=== PATIENT | male | born 1985 | race Caucasian/White ===

== ENCOUNTER 2018-12-03 11:27 | Inpatient (IN) | payer OTHER ==
[2018-12-03 11:50] VITALS: BMI 20.1
--- NOTE | 2018-12-03 12:14 | HP ---
COWS - Scale Resting Pulse: 0= [place] 80 or Below Sweatin= Chills/Flushing Restless Observation: 0= Sits Still Pupil Size: 1= Pupils >than Normal Bone or Joint Aches: 4=Acute Joint/Muscle Pain Runny Nose/ Eye Tearin= Nasal Congestion GI Upset > 30mins: 1= Stomach Cramp Tremor Observation: 1= Tremor Artesian, Not Seen Yawning Observation: 0= None Anxiety or Irritability: 4=Extreme Anxiety Goose Flesh Skin: 0=Smooth Skin COWS Score: 13 CIWA Score Nausea/Vomitin-Mild Nausea/No Vomiting Muscle Tremors: 1-None Visible, but Artesian Anxiety: 4-Mod. Anxious/Guarded Agitation: 0-Normal Activity Paroxysmal Sweats: 1-Minimal Palms Moist Orientation: 0-Oriented Tacttile Disturbances: 0-None Auditory Disturbances: 0-None Visual Disturbances: 0-None Headache: 5-Severe CIWA-Ar Total Score: 12 - Admission Criteria OASAS Guidelines: Admission for Medically Managed Detox: Requires at least one of the followin. CIWA greater than 12 2. Seizures within the past 24 hours 3. Delirium tremens within the past 24 hours 4. Hallucinations within the past 24 hours 5. Acute intervention needed for co occurring medical disorder 6. Acute intervention needed for co occurring psychiatric disorder 7. Severe withdrawal that cannot be handled at a lower level of care (continued vomiting, continued diarrhea, abnormal vital signs) requiring intravenous medication and/or fluids 8. Admission ROS [facility] Allergies/Adverse Reactions: Allergies Allergy/AdvReac Type Severity Reaction Status Date / Time Penicillins Allergy Mild Itching Verified 12/03/18 13:27 History of Present Illness: patient here requesting detox from etoh use , reports 1-2 pints/day vodka since age 27 , reports tremors and seizures if not drinking , most recently August 2018 , went to [facility] , reports he starts drinking around 9-10 a.m. , denies sobriety , prior detox 1 mo ago [facility] , 1 rehab 1 yr ago [facility] , did not complete , left AMA . This is the patient's first admission at this facility . cocaine : 50 $ /day crack cocaine fentanyl : denies use heroin : 1 bundle- 15 bags/day ivdu in [place] hands, legs , needles from the exchange , denies sharing, + re-using, + abscess in the past most recently right FA 2016 I & D at [facility] , current on the right hand , latest use last night around midnight, current symptoms as above . mtd : reports bought illicit methadone 1.5 weeks ago benzo ; denies use tobacco : 1 ppd since age 14 cannabis : age 17 etoh : since age 22 heroin : since age 27 cocaine : since 2016 SHx : [place] , unemployed , finances habit [place] Exam Limitations: Clinical Condition - Ebola screening Have you traveled outside of the country in the last 21 days: No Have you had contact with anyone from an Ebola affected area: No Have you been sick,other than usual withdrawal symptoms: No Do you have a fever: No - Review of Systems Constitutional: See HPI EENT: reports: See HPI Respiratory: reports: No Symptoms reported Cardiac: reports: No Symptoms Reported GI: reports: See HPI : reports: No Symptoms Reported Musculoskeletal: reports: Back Pain, Muscle Pain Integumentary: reports: See HPI, Erythema, Other (r hand dorsum) Neuro: reports: Headache, Seizure Endocrine: reports: No Symptoms Reported Psychiatric: reports: Orientated x3, Anxious Patient History - Patient Medical History Hx Anemia: No Hx Asthma: No Hx Chronic Obstructive Pulmonary Disease (COPD): No Hx Cancer: No Hx Cardiac Disorders: No Hx Congestive Heart Failure: No Hx Hypertension: No Hx Hypercholesterolemia: No Hx Pacemaker: No HX Cerebrovascular Accident: No Hx Seizures: No Hx Dementia: No Hx Diabetes: No Hx Gastrointestinal Disorders: No Hx Liver Disease: No Hx Genitourinary Disorders: No Hx Sexually Transmitted Disorders: No Hx Renal Disease (ESRD): No Hx Thyroid Disease: No Hx Human Immunodeficiency Virus (HIV): No Hx Hepatitis C: No Hx Depression: Yes (anxiety) Hx Suicide Attempt: No Hx Schizophrenia: No - Patient Surgical History Past Surgical History: No Hx Neurologic Surgery: No Hx Cataract Extraction: No Hx Cardiac Surgery: No Hx Lung Surgery: No Hx Breast Surgery: No Hx Breast Biopsy: No Hx Abdominal Surgery: No Hx Appendectomy: No Hx Cholecystectomy: No Hx Genitourinary Surgery: No Hx Section: No Hx Orthopedic Surgery: No Anesthesia Reaction: No - PPD History Date: 02/01/12 - Smoking Cessation Smoking history: Current every day smoker Have you smoked in the past 12 months: Yes Aproximately how many cigarettes per day: 40 Cigars Per Day: 0 Hx Chewing Tobacco Use: No Initiated information on smoking cessation: No - Substances Abused Heroin Route: Injection Frequency: Daily Amount used: 10-15 bags Age of first use: 26 Date of Last Use: 12/03/18 Crack Route: Oral Frequency: Daily Amount used: $50 Age of first use: 31 Date of Last Use: 12/03/18 Alcohol-vodka Route: Oral Frequency: Daily Amount used: 1-2 pts. Age of first use: 22 Date of Last Use: 12/03/18 Family Disease History - Family Disease History Family History: Denies Admission Physical Exam [facility] - Vital Signs Vital Signs: Vital Signs - 24 hr 12/03/18 11:48 Temperature 96.9 F L Pulse Rate 78 Respiratory 20 Rate Blood Pressure 117/71 - Physical General Appearance: Yes: Disheveled, Moderate Distress HEENTM: Yes: EOMI, Normocephalic, Normal Voice, Nasal Congestion Respiratory: Yes: Chest Non-Tender, Lungs Clear, Normal Breath Sounds Neck: Yes: No masses,lesions,Nodules, Trachea in good position Breast: Yes: Breast Exam Deferred Cardiology: Yes: Regular Rhythm, Regular Rate, S1, S2 Abdominal: Yes: Non Tender, Soft Genitourinary: Yes: Within Normal Limits Back: Yes: Normal Inspection Musculoskeletal: Yes: Gait Steady, Back pain Extremities: Yes: Non-Tender, Tremors Neurological: Yes: Motor Strength 5/5, Normal Mood/Affect Integumentary: Yes: Erythema, Track Longo, Other (right dorsum of hand edema/ erythema at injection site) - Diagnostic (1) Opiate dependence Current Visit: Yes Status: Acute Qualifiers: Substance use status: in withdrawal Qualified Code(s): F11.23 - Opioid dependence with withdrawal (2) Alcohol dependence Current Visit: Yes Status: Acute Qualifiers: Substance use status: in withdrawal (3) Cocaine dependence Current Visit: Yes Status: Chronic Qualifiers: Substance use status: uncomplicated Qualified Code(s): F14.20 - Cocaine dependence, uncomplicated (4) Nicotine dependence Current Visit: Yes Status: Chronic Qualifiers: Nicotine product type: cigarettes (5) Cellulitis of hand Current Visit: Yes Status: Acute [facility] Breath Alcohol Content Breath Alcohol Content: 0 Urine Drug Screen - Results Drug Screen Negative: No Urine Drug Screen Results: BROOK-Cocaine, OPI-Opiates, BZO-Benzodiazepines, MTD- Methadone, FEN-Fentanyl
[2018-12-03] MEDS ORDERED: ACETAMINOPHEN 325 MG TABLET (FP) PO PRN (12:21)
[2018-12-03] MEDS ORDERED: MENTHOL/PHENOL 1 EACH UD MM PRN (12:21)
[2018-12-03] MEDS ORDERED: MAGNESIUM CITRATE 300 ML BOTTLE PO PRN (12:21)
[2018-12-03] MEDS ORDERED: P-EPHED 60MG/TRIPROLIDI 2.5MG TABLET PO PRN (12:21)
[2018-12-03] MEDS ORDERED: MAGNESIUM HYDROX 2400MG/30ML ORAL SUSPENSION 30 ML CUP PO PRN (12:21)
[2018-12-03] MEDS ORDERED: IBUPROFEN 400 MG TABLET (FP) PO PRN (12:21)
[2018-12-03] MEDS ORDERED: chlordiazePOXIDE HCL 25 MG CAPSULE PO PRN (12:21)
[2018-12-03] MEDS ORDERED: guaiFENesin/D-METHORPHAN HB 10 ML UNIT-DOSE CUPS PO PRN (12:21)
[2018-12-03] MEDS ORDERED: MAG HYDROX/AL HYDROX/SIMETH 30 ML UNIT-DOSE CUP PO PRN (12:21)
[2018-12-03] MEDS ORDERED: NICOTINE POLACRILEX 2 MG GUM BUC PRN (12:21)
[2018-12-03] MEDS ORDERED: METHADONE HCL 10 MG TABLET (FOR DETOX USE ONLY) PO ONE ×2 (14:40→23:00)
[2018-12-03] MEDS: SULFAMETHOXAZOLE/TRIMETHOPRIM 800MG/160MG D.S. TABLET PO SCH ×2 (16:48→22:08)
[2018-12-03] MEDS: chlordiazePOXIDE HCL 25 MG CAPSULE PO SCH ×2 (16:48→22:08)
[2018-12-03] MEDS: THIAMINE HCL 100 MG TABLET (FP) PO SCH (22:07)
[2018-12-03] MEDS: MELATONIN 5 MG TABLETS PO PRN (22:08)
[2018-12-04] MEDS: chlordiazePOXIDE HCL 25 MG CAPSULE PO SCH ×4 (07:20→22:28)
[2018-12-04] MEDS ORDERED: METHADONE HCL 10 MG TABLET (FOR DETOX USE ONLY) PO SCH (10:00)
[2018-12-04 10:22] LABS: HEMOGLOBIN 14.3 GM/dL (11.7-16.9); MCH 31.8 pg (25.7-33.7); MEAN CELL VOLUME 93.6 fl (80-96); MEAN PLT VOLUME 12.2 fl (7.5-11.1); PLATELET COUNT 185 K/MM3 (134-434); RBC 4.49 M/mm3 (4.00-5.60); RDW 14.3 % (11.9-15.9); WHITE BLOOD COUNT 10.3 K/mm3 (4.0-10.0)
[2018-12-04] MEDS: PRENATAL VITAMINS W/ FOLIC ACID TABLET (FP) PO SCH (10:31)
[2018-12-04] MEDS: SULFAMETHOXAZOLE/TRIMETHOPRIM 800MG/160MG D.S. TABLET PO SCH ×2 (10:31→22:28)
[2018-12-04 10:46] LABS: ALBUMIN 3.4 g/dl (3.4-5.0); ALK PHOS 67 U/L (45-117); ANION GAP 9 MMOL/L (8-16); BILIRUBIN,TOTAL 0.6 mg/dL (0.2-1); BLOOD UREA NITROGEN 10 mg/dL (7-18); CALCIUM 9.4 mg/dL (8.5-10.1); CHLORIDE 102 mmol/L (98-107); CO2 30 mmol/L (21-32); CREATININE 0.9 mg/dL (0.55-1.3); GLUCOSE,RANDOM 110 mg/dL (74-106); POTASSIUM 3.9 mmol/L (3.5-5.1); SGOT/AST 98 U/L (15-37); SGPT/ALT 138 U/L (13-61); SODIUM 140 mmol/L (136-145); TOT PROT 7.8 g/dl (6.4-8.2)
[2018-12-04] MEDS ORDERED: hydrOXYzine PAMOATE 25 MG CAPSULE (FP) PO ONE (10:48)
--- NOTE | 2018-12-04 10:52 | PN ---
S CIWA - CIWA Score Nausea/Vomitin-Mild Nausea/No Vomiting Muscle Tremors: 3 Anxiety: 3 Agitation: 2 Paroxysmal Sweats: 1-Minimal Palms Moist Orientation: 0-Oriented Tacttile Disturbances: 0-None Auditory Disturbances: 0-None Visual Disturbances: 0-None Headache: 2-Mild CIWA-Ar Total Score: 12 [facility] COWS - Scale Resting Pulse: 0= [place] 80 or Below Sweatin= Chills/Flushing Restless Observation: 0= Sits Still Pupil Size: 0= Normal to Room Light Bone or Joint Aches: 1= Mild Discomfort Runny Nose/ Eye Tearin= Nasal Congestion GI Upset > 30mins: 2= Nausea/Diarrhea Tremor Observation of Outstretched Hands: 2= Slight Tremor Visible Yawning Observation: 2= >3x During Session Anxiety or Irritability: 1=Feels Anxious/Irritable Goose Flesh Skin: 0=Smooth Skin COWS Score: 10 S Progress Note (SOAP) Subjective: right dorsal of hand swell subsided "much better today" redness fingers full range of motion continue warm compress elevation and oral bactrim ds body aches tremor joints pain sweating anxiety Objective: 12/04/18 10:51 Vital Signs Temperature 98.9 F 12/04/18 08:56 Pulse Rate 62 12/04/18 08:56 Respiratory Rate 18 12/04/18 08:56 Blood Pressure 81/46 L 12/04/18 08:56 O2 Sat by Pulse Oximetry (%) Laboratory Last Values WBC 10.3 K/mm3 (4.0-10.0) H 12/04/18 06:00 RBC 4.49 M/mm3 (4.00-5.60) 12/04/18 06:00 Hgb 14.3 GM/dL (11.7-16.9) 12/04/18 06:00 Hct 42.0 % (35.4-49) 12/04/18 06:00 MCV 93.6 fl (80-96) 12/04/18 06:00 MCH 31.8 pg (25.7-33.7) 12/04/18 06:00 MCHC 34.0 g/dl (32.0-35.9) 12/04/18 06:00 RDW 14.3 % (11.9-15.9) 12/04/18 06:00 Plt Count 185 K/MM3 (134-434) 12/04/18 06:00 MPV 12.2 fl (7.5-11.1) H D 12/04/18 06:00 Sodium 140 mmol/L (136-145) 12/04/18 06:00 Potassium 3.9 mmol/L (3.5-5.1) 12/04/18 06:00 Chloride 102 mmol/L (98-107) 12/04/18 06:00 Carbon Dioxide 30 mmol/L (21-32) 12/04/18 06:00 Anion Gap 9 MMOL/L (8-16) 12/04/18 06:00 BUN 10 mg/dL (7-18) 12/04/18 06:00 Creatinine 0.9 mg/dL (0.55-1.3) 12/04/18 06:00 Creat Clearance w eGFR > 60 (>60) 12/04/18 06:00 Random Glucose 110 mg/dL (74-106) H 12/04/18 06:00 Calcium 9.4 mg/dL (8.5-10.1) 12/04/18 06:00 Total Bilirubin 0.6 mg/dL (0.2-1) 12/04/18 06:00 AST 98 U/L (15-37) H 12/04/18 06:00 ALT 138 U/L (13-61) H 12/04/18 06:00 Alkaline Phosphatase 67 U/L (45-117) 12/04/18 06:00 Total Protein 7.8 g/dl (6.4-8.2) 12/04/18 06:00 Albumin 3.4 g/dl (3.4-5.0) 12/04/18 06:00 lab noted Assessment: 12/04/18 10:51 withdrawal sx Plan: continue detox
--- NOTE | 2018-12-04 10:55 | CONSULT ---
[facility] Psychiatric Consult - Data Date of interview: 12/04/18 Admission source: [facility] Identifying data: This is a 33 years old male, single, with no children, unemloyed, homeless with no financial support, with no psychiatric hospitalization history, patient here requesting detox from etoh, reporting Alcohol withdrawal symptoms. Substance Abuse History: Smoking history: Current every day smoker. Have you smoked in the past 12 months: Yes. Aproximately how many cigarettes per day: 40. Cigars Per Day: 0. Hx Chewing Tobacco Use: No. Initiated information on smoking cessation: No. - Substances Abused. Heroin. Route: Injection. Frequency: Daily. Amount used: 10-15 bags. Age of first use: 26. Date of Last Use: 12/03/18. Crack. Route: Oral. Frequency: Daily. Amount used: $ 50. Age of first use: 31. Date of Last Use: 12/03/18. Alcohol-vodka. Route: Oral. Frequency: Daily. Amount used: 1-2 pts. Age of first use: 22. Date of Last Use: 12/03/18 Medical History: Denies significant medical issues Psychiatric History: Patient reports anxiety and depression, reports no medications taking prior to admission, reports no psychiatric hospitalization history, no history of suicidal, homicidal thoughts Physical/Sexual Abuse/Trauma History: Denies Additional Comment: Observation. Deto Unit Care Protocol Mental Status Exam - Mental Status Exam Alert and Oriented to: Person Cognitive Function: Fair Patient Appearance: Unkempt Mood: Sad Affect: Flat Patient Behavior: Sedated Speech Pattern: Delayed Voice Loudness: Mildly Soft/Quiet Thought Process: Circumstantial Thought Disorder: Being Controlled Hallucinations: Denies Suicidal Ideation: Denies Homicidal Ideation: Denies Insight/Judgement: Fair Sleep: Difficulty falling asleep Appetite: Weight loss Muscle strength/Tone: Mild Hypotonicity Gait/Station: Shuffling Additional Comments: Observation. Deto Unit Care Protocol Psychiatric Findings - Problem List ([place] 1, 2,3) (1) Alcohol dependence Current Visit: Yes Status: Acute Qualifiers: Substance use status: in withdrawal (2) Opiate dependence Current Visit: Yes Status: Acute Qualifiers: Substance use status: in withdrawal Qualified Code(s): F11.23 - Opioid dependence with withdrawal (3) Cocaine dependence Current Visit: Yes Status: Chronic Qualifiers: Substance use status: uncomplicated Qualified Code(s): F14.20 - Cocaine dependence, uncomplicated (4) Nicotine dependence Current Visit: Yes Status: Chronic Qualifiers: Nicotine product type: cigarettes - Initial Treatment Plan Initial Treatment Plan: Observation. Deto Unit Care Protocol
[2018-12-04] MEDS: THIAMINE HCL 100 MG TABLET (FP) PO SCH (22:28)
[2018-12-05] MEDS: chlordiazePOXIDE HCL 25 MG CAPSULE PO SCH ×2 (06:30→10:46)
--- NOTE | 2018-12-05 08:47 | PN ---
[facility] CIWA - CIWA Score Nausea/Vomitin-Mild Nausea/No Vomiting Muscle Tremors: 3 Anxiety: 1-Mildly Anxious Agitation: 2 Paroxysmal Sweats: 1-Minimal Palms Moist Orientation: 0-Oriented Tacttile Disturbances: 0-None Auditory Disturbances: 0-None Visual Disturbances: 0-None Headache: 2-Mild CIWA-Ar Total Score: 10 [facility] COWS - Scale Resting Pulse: 0= [place] 80 or Below Sweatin= Chills/Flushing Restless Observation: 0= Sits Still Pupil Size: 0= Normal to Room Light Bone or Joint Aches: 1= Mild Discomfort Runny Nose/ Eye Tearin= Nasal Congestion GI Upset > 30mins: 2= Nausea/Diarrhea Tremor Observation of Outstretched Hands: 1= Tremor Smilax, Not Seen Yawning Observation: 1= 1-2x During Session Anxiety or Irritability: 1=Feels Anxious/Irritable Goose Flesh Skin: 0=Smooth Skin COWS Score: 8 [facility] Progress Note (SOAP) Subjective: body aches joints pain tremor Objective: 12/05/18 08:46 Vital Signs Temperature 96.7 F L 12/05/18 06:09 Pulse Rate 63 12/05/18 06:09 Respiratory Rate 18 12/05/18 06:30 Blood Pressure 110/60 12/05/18 06:09 O2 Sat by Pulse Oximetry (%) Laboratory Last Values WBC 10.3 K/mm3 (4.0-10.0) H 12/04/18 06:00 RBC 4.49 M/mm3 (4.00-5.60) 12/04/18 06:00 Hgb 14.3 GM/dL (11.7-16.9) 12/04/18 06:00 Hct 42.0 % (35.4-49) 12/04/18 06:00 MCV 93.6 fl (80-96) 12/04/18 06:00 MCH 31.8 pg (25.7-33.7) 12/04/18 06:00 MCHC 34.0 g/dl (32.0-35.9) 12/04/18 06:00 RDW 14.3 % (11.9-15.9) 12/04/18 06:00 Plt Count 185 K/MM3 (134-434) 12/04/18 06:00 MPV 12.2 fl (7.5-11.1) H D 12/04/18 06:00 Sodium 140 mmol/L (136-145) 12/04/18 06:00 Potassium 3.9 mmol/L (3.5-5.1) 12/04/18 06:00 Chloride 102 mmol/L (98-107) 12/04/18 06:00 Carbon Dioxide 30 mmol/L (21-32) 12/04/18 06:00 Anion Gap 9 MMOL/L (8-16) 12/04/18 06:00 BUN 10 mg/dL (7-18) 12/04/18 06:00 Creatinine 0.9 mg/dL (0.55-1.3) 12/04/18 06:00 Creat Clearance w eGFR > 60 (>60) 12/04/18 06:00 Random Glucose 110 mg/dL (74-106) H 12/04/18 06:00 Calcium 9.4 mg/dL (8.5-10.1) 12/04/18 06:00 Total Bilirubin 0.6 mg/dL (0.2-1) 12/04/18 06:00 AST 98 U/L (15-37) H 12/04/18 06:00 ALT 138 U/L (13-61) H 12/04/18 06:00 Alkaline Phosphatase 67 U/L (45-117) 12/04/18 06:00 Total Protein 7.8 g/dl (6.4-8.2) 12/04/18 06:00 Albumin 3.4 g/dl (3.4-5.0) 12/04/18 06:00 RPR Titer Nonreactive (NONREACTIVE) 12/04/18 06:00 lab noted Assessment: 12/05/18 08:48 withdrawal sx liver enzyme elevation Plan: continue detox repeat ast
[2018-12-05] MEDS ORDERED: METHADONE HCL 5 MG TABLET (FOR DETOX USE ONLY) PO SCH (10:00)
[2018-12-05] MEDS: PRENATAL VITAMINS W/ FOLIC ACID TABLET (FP) PO SCH (10:13)
[2018-12-05] MEDS: SULFAMETHOXAZOLE/TRIMETHOPRIM 800MG/160MG D.S. TABLET PO SCH ×2 (10:13→22:25)
[2018-12-05] MEDS: chlordiazePOXIDE 5 MG CAPSULE PO SCH ×2 (18:15→22:25)
[2018-12-05] MEDS: THIAMINE HCL 100 MG TABLET (FP) PO SCH (22:25)
[2018-12-05] MEDS: MELATONIN 5 MG TABLETS PO PRN (22:26)
[2018-12-06] MEDS: chlordiazePOXIDE 5 MG CAPSULE PO SCH ×2 (05:24→10:09)
[2018-12-06] MEDS ORDERED: METHADONE HCL 10 MG TABLET (FOR DETOX USE ONLY) PO SCH (10:00)
[2018-12-06] MEDS: PRENATAL VITAMINS W/ FOLIC ACID TABLET (FP) PO SCH (10:10)
[2018-12-06] MEDS: SULFAMETHOXAZOLE/TRIMETHOPRIM 800MG/160MG D.S. TABLET PO SCH ×2 (10:10→22:17)
--- NOTE | 2018-12-06 14:34 | PN ---
[facility] Progress Note (SOAP) Subjective: Fatigue. Objective: PATIENT A & O X 3, OBSERVED AMBULATING ON UNIT. IN NO ACUTE DISTRESS. PATIENT REPORTS HISTORY OF LOW BP, OFTEN WHEN IN WITHDRAWAL. 12/06/18 14:32 Vital Signs Temperature 98.6 F 12/06/18 13:42 Pulse Rate 63 12/06/18 13:42 Respiratory Rate 18 12/06/18 13:42 Blood Pressure 95/53 L 12/06/18 13:42 O2 Sat by Pulse Oximetry (%) Laboratory Tests 12/04/18 12/04/18 12/04/18 06:00 06:00 06:00 WBC 10.3 H RBC 4.49 Hgb 14.3 Hct 42.0 MCV 93.6 MCH 31.8 MCHC 34.0 RDW 14.3 Plt Count 185 MPV 12.2 H D Sodium 140 Potassium 3.9 Chloride 102 Carbon Dioxide 30 Anion Gap 9 BUN 10 Creatinine 0.9 Creat Clearance w eGFR > 60 Random Glucose 110 H Calcium 9.4 Total Bilirubin 0.6 AST 98 H ALT 138 H Alkaline Phosphatase 67 Total Protein 7.8 Albumin 3.4 RPR Titer Nonreactive LABS NOTED. Assessment: 12/06/18 14:33 WITHDRAWAL SYMPTOMS. Plan: CONTINUE DETOX.
[2018-12-06] MEDS: chlordiazePOXIDE HCL 10 MG CAPSULE PO SCH ×2 (17:38→22:17)
[2018-12-06] MEDS: THIAMINE HCL 100 MG TABLET (FP) PO SCH (22:17)
[2018-12-07] MEDS ORDERED: METHADONE HCL 5 MG TABLET (FOR DETOX USE ONLY) PO SCH (06:00)
[2018-12-07] MEDS: chlordiazePOXIDE HCL 10 MG CAPSULE PO SCH ×2 (06:36→11:45)
[2018-12-07 09:04] VITALS: BP 99/57; PULSE 69; TEMP 97.7
[2018-12-07] MEDS: SULFAMETHOXAZOLE/TRIMETHOPRIM 800MG/160MG D.S. TABLET PO SCH (10:45)
[2018-12-07] MEDS: PRENATAL VITAMINS W/ FOLIC ACID TABLET (FP) PO SCH (10:45)
--- NOTE | 2018-12-07 19:33 | DS ---
[facility] Detox Discharge Summary Admission Date: 12/03/18 Discharge Date: 12/07/18 - History Present History: Alcohol Dependence, Cocaine Dependence, Opioid Dependence Additional Comments: PATIENT LEFT DETOX UNIT PRIOR TO TIME IN WHICH [employer] WAS PRESENT ON UNIT TO CONDUCT DISCHARGE INTERVIEW ASSESSMENT. PER NEURO OPHTHALMOLOGIST Jami DOLL, PATIENT REFERRED TO [facility] ([place], [place]) AND TO CONSIDER REHAB AT [facility] OR AT [facility] FOR THE FUTURE. PATIENT ALSO PROVIDED REFERRAL INFORMATION FOR [facility] ([place], [place]). Pertinent Past History: Nicotine Dependence, Cellulitis of Hand, History of Depression, History of Anxiety. - Physical Exam Results Vital Signs: Vital Signs Temperature 97.7 F 12/07/18 09:03 Pulse Rate 69 12/07/18 09:03 Respiratory Rate 18 12/07/18 09:03 Blood Pressure 99/57 L 12/07/18 09:03 O2 Sat by Pulse Oximetry (%) Pertinent Admission Physical Exam Findings: WITHDRAWAL SYMPTOMS. Laboratory Tests 12/04/18 12/04/18 12/04/18 06:00 06:00 06:00 WBC 10.3 H RBC 4.49 Hgb 14.3 Hct 42.0 MCV 93.6 MCH 31.8 MCHC 34.0 RDW 14.3 Plt Count 185 MPV 12.2 H D Sodium 140 Potassium 3.9 Chloride 102 Carbon Dioxide 30 Anion Gap 9 BUN 10 Creatinine 0.9 Creat Clearance w eGFR > 60 Random Glucose 110 H Calcium 9.4 Total Bilirubin 0.6 AST 98 H ALT 138 H Alkaline Phosphatase 67 Total Protein 7.8 Albumin 3.4 RPR Titer Nonreactive LABS NOTED. - Treatment Hospital Course: Detox Protocol Followed, Detoxed Safely, Responded well, Discharged Condition Good Patient has Accepted a Rehab Referral to: WILL CONSIDER RE[facility] FOR FUTURE. - Medication Discharge Medications: Ambulatory Orders NK [No Known Home Medication] 12/03/18 - Diagnosis (1) Alcohol dependence Status: Acute Qualifiers: Substance use status: in withdrawal Complication of substance-induced condition: uncomplicated Qualified Code(s): F10.230 - Alcohol dependence with withdrawal, uncomplicated (2) Cellulitis of hand Status: Acute (3) Opiate dependence Status: Acute Qualifiers: Substance use status: in withdrawal Qualified Code(s): F11.23 - Opioid dependence with withdrawal (4) Cocaine dependence Status: Chronic Qualifiers: Substance use status: uncomplicated Qualified Code(s): F14.20 - Cocaine dependence, uncomplicated (5) Nicotine dependence Status: Chronic Qualifiers: Nicotine product type: cigarettes Substance use status: uncomplicated Qualified Code(s): F17.210 - Nicotine dependence, cigarettes, uncomplicated - AMA Did Patient Leave Against Medical Advice: No
== END 2018-12-07 10:51 | disposition home or self-care (01) | DRG 773 ==
LOC: YASAS 11:27 → Y3N 13:54
PROVIDERS: ADMIT Neuromusculoskeletal Medicine & OMM; ATTEND Neuromusculoskeletal Medicine & OMM
PROC: HZ2ZZZZ Detoxification Services for Substance Abuse Treatment (ICD-10-PCS; principal; 2018-12-03)
DX: F11.23 Opioid dependence with withdrawal (principal); F10.230 Alcohol dependence with withdrawal, uncomplicated; F14.20 Cocaine dependence, uncomplicated; F17.210 Nicotine dependence, cigarettes, uncomplicated; F41.8 Other specified anxiety disorders; F32.9 Major depressive disorder, single episode, unspecified; L03.113 Cellulitis of right upper limb; Z59.0 Homelessness
CPT/HCPCS: 36415; 80053; 85027; 86593

== ENCOUNTER 2019-03-03 11:06 | Inpatient (IN) | payer OTHER ==
[2019-03-03 15:17] VITALS: BMI 19.3
--- NOTE | 2019-03-03 15:32 | HP ---
COWS - Scale Resting Pulse: 0= NE 80 or Below Sweatin= Chills/Flushing Restless Observation: 1= Difficult to Sit Still Pupil Size: 1= Pupils >than Normal Bone or Joint Aches: 1= Mild Discomfort Runny Nose/ Eye Tearin= Runny Nose/Eyes GI Upset > 30mins: 1= Stomach Cramp Tremor Observation: 2= Slight Tremor Visible Yawning Observation: 1= 1-2x During Session Anxiety or Irritability: 2=Irritable/Anxious Goose Flesh Skin: 0=Smooth Skin COWS Score: 12 CIWA Score Nausea/Vomitin-No Nausea/No Vomiting Muscle Tremors: 2 Anxiety: 3 (reports date 02/28/19, able to be reirected) Agitation: 0-Normal Activity Paroxysmal Sweats: 2 Orientation: 2-Disoriented Date<2 days Tacttile Disturbances: 0-None Auditory Disturbances: 0-None Visual Disturbances: 0-None Headache: 3-Moderate CIWA-Ar Total Score: 12 - Admission Criteria OASAS Guidelines: Admission for Medically Managed Detox: Requires at least one of the followin. CIWA greater than 12 2. Seizures within the past 24 hours 3. Delirium tremens within the past 24 hours 4. Hallucinations within the past 24 hours 5. Acute intervention needed for co occurring medical disorder 6. Acute intervention needed for co occurring psychiatric disorder 7. Severe withdrawal that cannot be handled at a lower level of care (continued vomiting, continued diarrhea, abnormal vital signs) requiring intravenous medication and/or fluids 8. Patient presents the following: CIWA greater than 12 Admission Criteria Met: Admission criteria met Admission ROS [facility] - [facility] Chief Complaint: " I want to detox to go to methadone clinic" Allergies/Adverse Reactions: Allergies Allergy/AdvReac Type Severity Reaction Status Date / Time Penicillins Allergy Mild Itching Verified 03/03/19 15:12 History of Present Illness: Patient is a 33 yo male, homeless, unemployed, linked to [facility] has with hx of alcohol and heroin (IV) dependence is here seeking detox d/t withdrawal symptoms, last detox prior detox 1 mo ago [facility] Denies medical psych: depression and anxiety Denies hx of overdose Reports remote hxc of syncope at 28 yo attributes to use of heroin. Exam Limitations: No Limitations - Ebola screening Have you traveled outside of the country in the last 21 days: No Have you had contact with anyone from an Ebola affected area: No - Review of Systems Constitutional: Chills, Loss of Appetite, Changes in sleep, Unintentional Wgt. Loss EENT: reports: Other (runny nose, ringing of ear when use FEN) Respiratory: reports: No Symptoms reported Cardiac: reports: No Symptoms Reported GI: reports: Poor Appetite, Poor Fluid Intake, Abdominal cramping : reports: No Symptoms Reported Musculoskeletal: reports: Back Pain Integumentary: reports: No Symptoms Reported Neuro: reports: Headache, Weakness Endocrine: reports: Increased Thirst Hematology: reports: No Symptoms Reported Psychiatric: reports: Orientated x3, Anxious Other Systems: Reviewed and Negative Patient History - Patient Medical History Hx Anemia: No Hx Asthma: No Hx Chronic Obstructive Pulmonary Disease (COPD): No Hx Cancer: No Hx Cardiac Disorders: No Hx Congestive Heart Failure: No Hx Hypertension: No Hx Hypercholesterolemia: No Hx Pacemaker: No HX Cerebrovascular Accident: No Hx Seizures: No Hx Dementia: No Hx Diabetes: No Hx Gastrointestinal Disorders: No Hx Liver Disease: No Hx Genitourinary Disorders: No Hx Sexually Transmitted Disorders: No Hx Renal Disease (ESRD): No Hx Thyroid Disease: No Hx Human Immunodeficiency Virus (HIV): No Hx Hepatitis C: No Hx Depression: Yes (anxiety) Hx Suicide Attempt: No Hx Bipolar Disorder: No Hx Schizophrenia: No - Patient Surgical History Past Surgical History: No Hx Neurologic Surgery: No Hx Cataract Extraction: No Hx Cardiac Surgery: No Hx Lung Surgery: No Hx Breast Surgery: No Hx Breast Biopsy: No Hx Abdominal Surgery: No Hx Appendectomy: No Hx Cholecystectomy: No Hx Genitourinary Surgery: No Hx Section: No Hx Orthopedic Surgery: No Anesthesia Reaction: No - PPD History Previous Implant?: No Documented Results: Negative w/proof Date: 12/05/18 PPD to be Administered?: No - Smoking Cessation Smoking history: Current every day smoker Have you smoked in the past 12 months: Yes Aproximately how many cigarettes per day: 20 Cigars Per Day: 0 Hx Chewing Tobacco Use: No Initiated information on smoking cessation: Yes 'Breaking Loose' booklet given: 03/03/19 - Substance & Tx. History Hx Alcohol Use: Yes Hx Substance Use: Yes Substance Use Type: Alcohol, Heroin Hx Substance Use Treatment: Yes ([facility] detox one month) - Substances abused Heroin Substance route: Injection Frequency: Daily Amount used: 14 bags Age of first use: 27 Date of last use: 03/02/19 Alcohol Substance route: Oral Frequency: Daily Amount used: 1.5 vodka Age of first use: 22 Date of last use: 03/02/19 Family Disease History - Family Disease History Family History: Denies Admission Physical Exam [facility] - Vital Signs Vital Signs: Vital Signs - 24 hr 03/03/19 15:13 Temperature 98 F Pulse Rate 63 Respiratory 18 Rate Blood Pressure 122/70 - Physical General Appearance: Yes: Disheveled (unkempt), Mild Distress, Thin, Irritable, Anxious HEENTM: Yes: EOMI, Hearing grossly Normal, Normal ENT Inspection, Normocephalic , Normal Voice, KARL, Pharynx Normal, Tm's normal, Rhinorrhea, Other (dry mucous membranes, poor dentition) Respiratory: Yes: Chest Non-Tender, Lungs Clear, Normal Breath Sounds, No Respiratory Distress, No Accessory Muscle Use Neck: Yes: Within Normal Limits Breast: Yes: Breast Exam Deferred Cardiology: Yes: Regular Rhythm, Regular Rate Abdominal: Yes: Normal Bowel Sounds, Non Tender, Flat, Soft Genitourinary: Yes: Within Normal Limits Back: Yes: Normal Inspection Musculoskeletal: Yes: full range of Motion, Gait Steady, Pelvis Stable, Back pain Extremities: Yes: Normal Capillary Refill, Normal Inspection, Normal Range of Motion, Non-Tender Neurological: Yes: cmm operator II-XII NML intact, Fully Oriented, Alert, Motor Strength 5/5, Depressed Affect Integumentary: Yes: Normal Color, Warm, Diaphoresis, Track Longo (bilateral anticubital fossa, no infection present) Lymphatic: Yes: Within Normal Limits - Diagnostic (1) Alcohol dependence with uncomplicated withdrawal Current Visit: Yes Status: Acute (2) Opioid dependence with withdrawal Current Visit: Yes Status: Acute (3) IVDU (intravenous drug user) Current Visit: Yes Status: Acute (4) Cocaine dependence Current Visit: Yes Status: Chronic Qualifiers: Substance use status: uncomplicated Qualified Code(s): F14.20 - Cocaine dependence, uncomplicated (5) Nicotine dependence Current Visit: Yes Status: Chronic Qualifiers: Nicotine product type: cigarettes Substance use status: uncomplicated Qualified Code(s): F17.210 - Nicotine dependence, cigarettes, uncomplicated Cleared for Admission [facility] - Detox or Rehab [facility] Level of Care: Medically Managed Detox Regimen/Protocol: Methadone/Valium Breathalyzer - Breathalyzer Breathalyzer: 0 Urine Drug Screen - Test Device Lot number: [id number] Expiration date: 10/11/20 - Results Drug screen NEGATIVE: No Urine drug screen results: BROOK-Cocaine, FEN-Fentanyl, MTD-Methadone, BAR- Barbiturates, BZO-Benzodiazepines Inpatient Rehab Admission - Rehab Decision to Admit Inpatient rehab admission?: No
[2019-03-03] MEDS ORDERED: MAG HYDROX/AL HYDROX/SIMETH 30 ML UNIT-DOSE CUP PO PRN (15:49)
[2019-03-03] MEDS ORDERED: diazePAM 5 MG TABLET PO PRN (15:49)
[2019-03-03] MEDS ORDERED: MENTHOL/PHENOL 1 EACH UD MM PRN (15:49)
[2019-03-03] MEDS ORDERED: MAGNESIUM HYDROX 2400MG/30ML ORAL SUSPENSION 30 ML CUP PO PRN (15:49)
[2019-03-03] MEDS ORDERED: BISMUTH SUBSALICYLATE 524 MG/30 ML UD PO PRN (15:49)
[2019-03-03] MEDS ORDERED: NICOTINE POLACRILEX 2 MG GUM BUC PRN (15:49)
[2019-03-03] MEDS ORDERED: ACETAMINOPHEN 325 MG TABLET (FP) PO PRN ×2 (15:49)
[2019-03-03] MEDS ORDERED: MELATONIN 5 MG TABLETS PO PRN (15:49)
[2019-03-03] MEDS ORDERED: MAGNESIUM CITRATE 300 ML BOTTLE PO PRN (15:49)
[2019-03-03] MEDS ORDERED: IBUPROFEN 400 MG TABLET (FP) PO PRN (15:49)
[2019-03-03] MEDS ORDERED: cloNIDine HCL 0.1 MG TABLET PO PRN (15:49)
[2019-03-03] MEDS ORDERED: METHOCARBAMOL 500 MG TABLET PO PRN (15:49)
[2019-03-03] MEDS ORDERED: METHADONE HCL 10 MG TABLET (FOR DETOX USE ONLY) PO ONE ×2 (16:30→23:00)
[2019-03-03 18:53] LABS: EPI CELLS 0.1 /HPF (0-5/HPF); PH,URINE 5.5 (5.0-8.0); URINE APPEARANCE CLEAR; URINE BACTERIA 5.1 /hpf (NEGATIVE); URINE BILIRUBIN NEGATIVE (NEGATIVE); URINE CASTS 0 /lpf (0-8); URINE COLOR YELLOW; URINE GLUCOSE (UA) NEGATIVE (NEGATIVE); URINE KETONE TRACE (NEGATIVE); URINE LEUK ESTERASE TRACE (NEGATIVE); URINE NITRITE NEGATIVE (NEGATIVE); URINE PROTEIN NEGATIVE (NEGATIVE); URINE RBC 58 /hpf (0-4); URINE UROBILINOGEN 0.2 mg/dL (0.2-1.0); URINE WBC 1 /hpf (0-5)
[2019-03-03] MEDS: THIAMINE HCL 100 MG TABLET (FP) PO SCH (22:32)
[2019-03-03] MEDS: diazePAM 5 MG TABLET PO SCH (22:32)
[2019-03-04] MEDS: diazePAM 5 MG TABLET PO SCH ×3 (07:19→22:26)
[2019-03-04] MEDS ORDERED: METHADONE HCL 10 MG TABLET (FOR DETOX USE ONLY) PO ONE (10:00)
[2019-03-04] MEDS: PRENATAL VITAMINS W/ FOLIC ACID TABLET (FP) PO SCH (10:25)
[2019-03-04] MEDS: NICOTINE 14 MG/24 HOURS TOPICAL PATCH TD SCH (10:25)
--- NOTE | 2019-03-04 12:08 | PN ---
[facility] CIWA - CIWA Score Nausea/Vomitin-No Nausea/No Vomiting Muscle Tremors: 3 Anxiety: 2 Agitation: 3 Paroxysmal Sweats: 3 Orientation: 0-Oriented Tacttile Disturbances: 0-None Auditory Disturbances: 0-None Visual Disturbances: 0-None Headache: 0-None Present CIWA-Ar Total Score: 11 S COWS - Scale Resting Pulse: 0= [place] 80 or Below Sweatin=Flushed/Facial Moisture Restless Observation: 1= Difficult to Sit Still Pupil Size: 0= Normal to Room Light Bone or Joint Aches: 1= Mild Discomfort Runny Nose/ Eye Tearin= Nasal Congestion GI Upset > 30mins: 0= None Tremor Observation of Outstretched Hands: 1= Tremor [place], Not Seen Yawning Observation: 2= >3x During Session Anxiety or Irritability: 2=Irritable/Anxious Goose Flesh Skin: 0=Smooth Skin COWS Score: 10 S Progress Note (SOAP) Subjective: irritable sweats shakes interrupted sleep body aches Objective: 03/04/19 12:07 Vital Signs Temperature 98.2 F 03/04/19 10:53 Pulse Rate 58 L 03/04/19 10:53 Respiratory Rate 16 03/04/19 10:53 Blood Pressure 110/62 03/04/19 10:53 O2 Sat by Pulse Oximetry (%) Laboratory Tests 03/03/19 16:05 Urine Color Yellow Urine Appearance Clear Urine pH 5.5 Ur Specific [place] 1.023 Urine Protein Negative Urine Glucose (UA) Negative Urine Ketones Trace H Urine Blood 2+ H Urine Nitrite Negative Urine Bilirubin Negative Urine Urobilinogen 0.2 Ur Leukocyte Esterase Trace Urine WBC (Auto) 1 Urine RBC (Auto) 58 Urine Casts (Auto) 0 U Epithel Cells (Auto) 0.1 Urine Bacteria (Auto) 5.1 rest of labs pending aaox3 ambulating no acute distress Assessment: 03/04/19 12:07 withdrawal sx Plan: continue detox increase fluids pending labs
[2019-03-04 12:12] LABS: HEMOGLOBIN 13.3 GM/dL (11.7-16.9); MCH 30.9 pg (25.7-33.7); MCHC 33.3 g/dl (32.0-35.9); MEAN CELL VOLUME 92.6 fl (80-96); MEAN PLT VOLUME 10.7 fl (7.5-11.1); PLATELET COUNT 179 K/MM3 (134-434); RBC 4.33 M/mm3 (4.00-5.60); RDW 14.3 % (11.9-15.9); WHITE BLOOD COUNT 5.5 K/mm3 (4.0-10.0)
[2019-03-04 12:24] LABS: ALBUMIN 3.2 g/dl (3.4-5.0); ALK PHOS 76 U/L (45-117); ANION GAP 6 MMOL/L (8-16); BILIRUBIN,TOTAL 0.2 mg/dL (0.2-1); BLOOD UREA NITROGEN 14 mg/dL (7-18); CALCIUM 9.2 mg/dL (8.5-10.1); CHLORIDE 107 mmol/L (98-107); CO2 28 mmol/L (21-32); CREATININE 0.9 mg/dL (0.55-1.3); GLUCOSE,RANDOM 97 mg/dL (74-106); POTASSIUM 4.6 mmol/L (3.5-5.1); SGOT/AST 54 U/L (15-37); SGPT/ALT 95 U/L (13-61); SODIUM 140 mmol/L (136-145)
[2019-03-04] MEDS: THIAMINE HCL 100 MG TABLET (FP) PO SCH (22:26)
[2019-03-05] MEDS ORDERED: METHADONE HCL 10 MG TABLET (FOR DETOX USE ONLY) PO ONE (10:00)
[2019-03-05] MEDS ORDERED: diazePAM 5 MG TABLET PO SCH (10:00)
--- NOTE | 2019-03-05 10:01 | DS ---
[facility] Detox Discharge Summary Admission Date: 03/03/19 Discharge Date: 03/05/19 - History Present History: Alcohol Dependence, Opioid Dependence Additional Comments: pt states he needs to leave today to see his mother in [place]- states he will go to methadone program to continue treatment - Physical Exam Results Vital Signs: Vital Signs Temperature 96.8 F L 03/05/19 03:00 Pulse Rate 62 03/05/19 03:00 Respiratory Rate 18 03/05/19 03:30 Blood Pressure 103/54 L 03/05/19 03:00 O2 Sat by Pulse Oximetry (%) - Treatment Hospital Course: Detox Protocol Followed - Medication Discharge Medications: Ambulatory Orders NK [No Known Home Medication] 12/03/18 - AMA Did Patient Leave Against Medical Advice: Yes
[2019-03-05 10:25] VITALS: BP 126/55; PULSE 79; TEMP 97.7
[2019-03-05] MEDS: PRENATAL VITAMINS W/ FOLIC ACID TABLET (FP) PO SCH (11:31)
[2019-03-05] MEDS: NICOTINE 14 MG/24 HOURS TOPICAL PATCH TD SCH (11:31)
[2019-03-06] MEDS ORDERED: diazePAM 5 MG TABLET PO SCH (06:00)
[2019-03-06] MEDS ORDERED: METHADONE HCL 10 MG TABLET (FOR DETOX USE ONLY) PO ONE (10:00)
[2019-03-07] MEDS ORDERED: METHADONE HCL 5 MG TABLET (FOR DETOX USE ONLY) PO ONE (06:00)
== END 2019-03-05 09:38 | disposition left against medical advice (07) | DRG 770 ==
LOC: YASAS 11:06 → Y6N 15:48
PROVIDERS: ADMIT Surgery; ATTEND Surgery
PROC: HZ2ZZZZ Detoxification Services for Substance Abuse Treatment (ICD-10-PCS; principal; 2019-03-03)
DX: F11.23 Opioid dependence with withdrawal (principal); F10.230 Alcohol dependence with withdrawal, uncomplicated; F14.20 Cocaine dependence, uncomplicated; F17.210 Nicotine dependence, cigarettes, uncomplicated
CPT/HCPCS: 36415; 80053; 81003; 85027; 86593; 87389

== ENCOUNTER 2019-10-28 10:51 | Inpatient (IN) | payer OTHER ==
[2019-10-28 11:34] VITALS: BMI 19.9
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
[2019-10-28] MEDS ORDERED: guaiFENesin 200 MG/10 ML 10 ML UNIT-DOSE CUPS PO PRN (15:23)
[2019-10-28] MEDS ORDERED: MAGNESIUM HYDROX 2400MG/30ML ORAL SUSPENSION 30 ML CUP PO PRN (15:23)
[2019-10-28] MEDS ORDERED: LOPERAMIDE HCL 2 MG CAPSULE PO PRN (15:23)
[2019-10-28] MEDS ORDERED: MENTHOL/PHENOL 1 EACH UD MM PRN (15:23)
[2019-10-28] MEDS ORDERED: MAG HYDROX/AL HYDROX/SIMETH 30 ML UNIT-DOSE CUP PO PRN (15:23)
[2019-10-28] MEDS ORDERED: ACETAMINOPHEN 325 MG TABLET (FP) PO PRN (15:23)
[2019-10-28] MEDS ORDERED: MAGNESIUM CITRATE 300 ML BOTTLE PO PRN (15:23)
[2019-10-28] MEDS ORDERED: IBUPROFEN 400 MG TABLET (FP) PO PRN (15:23)
[2019-10-28] MEDS ORDERED: P-EPHED 60MG/TRIPROLIDI 2.5MG TABLET PO PRN (15:23)
[2019-10-28] MEDS ORDERED: METHADONE HCL 10 MG TABLET PO SCH (15:26)
[2019-10-28] MEDS ORDERED: METHADONE 80 MG, METHADONE 30 MG PO ONE (16:00)
[2019-10-28] MEDS ORDERED: METHADONE HCL 10 MG TABLET ONE (16:20)
[2019-10-28] MEDS ORDERED: METHADONE HCL 40 MG DISPERSABLE TABLET ONE (16:20)
[2019-10-28] MEDS: BACITRACIN/POLYMYXIN B SULFATE 15 GM TUBE TP SCH (21:48)
[2019-10-28] MEDS: NICOTINE POLACRILEX 2 MG GUM BUC PRN (21:49)
[2019-10-28] MEDS: THIAMINE HCL 100 MG TABLET (FP) PO SCH (21:50)
[2019-10-28] MEDS: MELATONIN 5 MG TABLETS PO PRN (21:50)
[2019-10-29] MEDS ORDERED: METHADONE HCL 10 MG TABLET PO SCH (06:00)
[2019-10-29] MEDS ORDERED: METHADONE HCL 10 MG TABLET ONE (06:17)
[2019-10-29] MEDS ORDERED: METHADONE HCL 40 MG DISPERSABLE TABLET ONE (06:17)
[2019-10-29] MEDS: METHADONE 80 MG, METHADONE 30 MG PO SCH (06:56)
[2019-10-29] MEDS: NICOTINE POLACRILEX 2 MG GUM BUC PRN ×2 (09:42→17:46)
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
[2019-10-29] MEDS: PRENATAL VITAMINS W/ FOLIC ACID TABLET (FP) PO SCH (10:50)
[2019-10-29] MEDS: BACITRACIN/POLYMYXIN B SULFATE 15 GM TUBE TP SCH ×2 (10:51→21:48)
[2019-10-29 14:17] LABS: ALBUMIN 3.3 g/dl (3.4-5.0); BILIRUBIN,TOTAL 0.3 mg/dL (0.2-1); BLOOD UREA NITROGEN 11.7 mg/dL (7-18); CALCIUM 8.8 mg/dL (8.5-10.1); POTASSIUM 4.1 mmol/L (3.5-5.1); TOT PROT 6.7 g/dl (6.4-8.2)
[2019-10-29 14:18] LABS: HEMATOCRIT 34.6 % (35.4-49); HEMOGLOBIN 11.6 GM/dL (11.7-16.9); MCH 31.5 pg (25.7-33.7); MCHC 33.6 g/dl (32.0-35.9); MEAN CELL VOLUME 93.8 fl (80-96); MEAN PLT VOLUME 10.7 fl (7.5-11.1); PLATELET COUNT 164 K/MM3 (134-434); RBC 3.69 M/mm3 (4.00-5.60); RDW 14.3 % (11.9-15.9); WHITE BLOOD COUNT 7.1 K/mm3 (4.0-10.0)
[2019-10-29] MEDS: hydrOXYzine PAMOATE 50 MG CAPSULE (FP) PO PRN ×2 (17:46→21:48)
[2019-10-29] MEDS: THIAMINE HCL 100 MG TABLET (FP) PO SCH (21:48)
[2019-10-29] MEDS: MELATONIN 5 MG TABLETS PO PRN (21:48)
[2019-10-30] MEDS ORDERED: METHADONE HCL 10 MG TABLET ONE (05:27)
[2019-10-30] MEDS ORDERED: METHADONE HCL 40 MG DISPERSABLE TABLET ONE (05:27)
[2019-10-30] MEDS: hydrOXYzine PAMOATE 50 MG CAPSULE (FP) PO PRN ×3 (06:30→21:45)
[2019-10-30] MEDS: METHADONE 80 MG, METHADONE 30 MG PO SCH (06:30)
[2019-10-30] MEDS: PRENATAL VITAMINS W/ FOLIC ACID TABLET (FP) PO SCH (10:51)
[2019-10-30] MEDS: BACITRACIN/POLYMYXIN B SULFATE 15 GM TUBE TP SCH ×2 (10:52→21:46)
[2019-10-30] MEDS: MELATONIN 5 MG TABLETS PO PRN (21:45)
[2019-10-30] MEDS: THIAMINE HCL 100 MG TABLET (FP) PO SCH (21:45)
[2019-10-30] MEDS: NICOTINE POLACRILEX 2 MG GUM BUC PRN (21:59)
[2019-10-31] MEDS ORDERED: METHADONE HCL 10 MG TABLET ONE (06:19)
[2019-10-31] MEDS ORDERED: METHADONE HCL 40 MG DISPERSABLE TABLET ONE (06:20)
[2019-10-31] MEDS: METHADONE 80 MG, METHADONE 30 MG PO SCH (06:27)
[2019-10-31] MEDS: hydrOXYzine PAMOATE 50 MG CAPSULE (FP) PO PRN ×3 (06:29→21:40)
[2019-10-31] MEDS: PRENATAL VITAMINS W/ FOLIC ACID TABLET (FP) PO SCH (10:31)
[2019-10-31] MEDS: BACITRACIN/POLYMYXIN B SULFATE 15 GM TUBE TP SCH ×2 (10:32→21:41)
[2019-10-31] MEDS: NICOTINE POLACRILEX 2 MG GUM BUC PRN ×2 (18:02→21:40)
[2019-10-31] MEDS: MELATONIN 5 MG TABLETS PO PRN (21:40)
[2019-10-31] MEDS: THIAMINE HCL 100 MG TABLET (FP) PO SCH (21:40)
[2019-11-01] MEDS ORDERED: METHADONE HCL 10 MG TABLET ONE (06:16)
[2019-11-01] MEDS ORDERED: METHADONE HCL 40 MG DISPERSABLE TABLET ONE (06:17)
[2019-11-01] MEDS: METHADONE 80 MG, METHADONE 30 MG PO SCH (06:17)
[2019-11-01] MEDS: hydrOXYzine PAMOATE 50 MG CAPSULE (FP) PO PRN ×3 (06:18→21:36)
[2019-11-01] MEDS: PRENATAL VITAMINS W/ FOLIC ACID TABLET (FP) PO SCH (10:57)
[2019-11-01] MEDS: BACITRACIN/POLYMYXIN B SULFATE 15 GM TUBE TP SCH ×2 (10:57→21:37)
[2019-11-01] MEDS: NICOTINE POLACRILEX 2 MG GUM BUC PRN ×2 (10:57→17:32)
[2019-11-01] MEDS: THIAMINE HCL 100 MG TABLET (FP) PO SCH (21:36)
[2019-11-01] MEDS: MELATONIN 5 MG TABLETS PO PRN (21:36)
[2019-11-02] MEDS ORDERED: METHADONE HCL 40 MG DISPERSABLE TABLET ONE (04:16)
[2019-11-02] MEDS ORDERED: METHADONE HCL 10 MG TABLET ONE (04:16)
[2019-11-02] MEDS: hydrOXYzine PAMOATE 50 MG CAPSULE (FP) PO PRN ×2 (06:07→21:41)
[2019-11-02] MEDS: METHADONE 80 MG, METHADONE 30 MG PO SCH (06:08)
[2019-11-02] MEDS: BACITRACIN/POLYMYXIN B SULFATE 15 GM TUBE TP SCH ×2 (10:20→22:11)
[2019-11-02] MEDS: PRENATAL VITAMINS W/ FOLIC ACID TABLET (FP) PO SCH (10:20)
--- NOTE | 2019-11-02 16:52 | CONSULT ---
[facility] Psychiatric Consult - Data Date of interview: 11/02/19 Admission source: [facility] Identifying data: Patient is a 34 year old male, without children, unemployed, domiciled, and is not currently receiving financial assistance. This is patient's first admission to rehab at [facility]. Patient admitted to for alcohol and opiate dependence. Substance Abuse History: Smoking Cessation. Smoking history: Current every day smoker. Have you smoked in the past 12 months: Yes. Aproximately how many cigarettes per day: 20. Cigars Per Day: 0. Hx Chewing Tobacco Use: No. Initiated information on smoking cessation: Yes. 'Breaking Loose' booklet given : 10/28/19. - Substances abused. Heroin. Substance route: Injection. Frequency: Daily. Amount used: 1 bundle. Age of first use: 27. Date of last use: 10/27/19. Alcohol. Substance route: Oral. Frequency: Daily. Amount used: 1.5 pint vodka. Age of first use: 19. Date of last use: 10/27/19. Crack. Substance route: Smoking. Frequency: Daily. Amount used: $100 dollars/ day Medical History: denies. endorses good health. Psychiatric History: Patient's first psychiatric contact was at [facility] approximately two years ago after he reported difficulty sleeping. He was prescribed trazodone 50mg but it was then increased to 100mg after patient continued to report poor sleep. He denies history psychiatric hospitalizations and suicide attempt. Mr. Lentz reports accepting remeron for insomnia with favorable effect during his time of incarceration. Mr. Lentz reports anxiety secondary to his usage of opioid dependence. Patient denies thoughts or urges to hurt self or others. Physical/Sexual Abuse/Trauma History: denies. Mental Status Exam - Mental Status Exam Alert and Oriented to: Time, Place, Person Cognitive Function: Good Patient Appearance: Well Groomed Mood: Euthymic Affect: Mood Congruent Patient Behavior: Cooperative Speech Pattern: Appropriate Voice Loudness: Normal Thought Process: Goal Oriented Thought Disorder: Not Present Hallucinations: Denies Suicidal Ideation: Denies Homicidal Ideation: Denies Insight/Judgement: Poor Sleep: Poorly Appetite: Fair Muscle strength/Tone: Normal Gait/Station: Normal Psychiatric Findings - Problem List ([place] 1, 2,3) (1) Substance-induced sleep disorder Current Visit: Yes Status: Acute (2) Alcohol dependence Current Visit: Yes Status: Acute Qualifiers: Substance use status: in withdrawal Complication of substance-induced condition: uncomplicated Qualified Code(s): F10.230 - Alcohol dependence with withdrawal, uncomplicated (3) Opiate dependence Current Visit: Yes Status: Acute Qualifiers: Substance use status: in withdrawal Qualified Code(s): F11.23 - Opioid dependence with withdrawal (4) Cocaine dependence Current Visit: Yes Status: Chronic Qualifiers: Substance use status: uncomplicated Qualified Code(s): F14.20 - Cocaine dependence, uncomplicated (5) Substance-induced anxiety disorder Current Visit: Yes Status: Acute - Initial Treatment Plan Initial Treatment Plan: Psychoeducation provided. Detoxification in progress. Will order Remeron 15mg HS + Buspar 10mg BID. Benefits and side effects discussed. Verbal consent given.
[2019-11-02] MEDS: NICOTINE POLACRILEX 2 MG GUM BUC PRN (17:29)
[2019-11-02] MEDS: busPIRone HCL 10 MG TABLET (FP) PO SCH (21:41)
[2019-11-02] MEDS: MELATONIN 5 MG TABLETS PO PRN (21:41)
[2019-11-02] MEDS: MIRTAZAPINE 15 MG TABLET (FP) PO SCH (21:41)
[2019-11-02] MEDS: THIAMINE HCL 100 MG TABLET (FP) PO SCH (21:41)
[2019-11-03] MEDS ORDERED: METHADONE HCL 40 MG DISPERSABLE TABLET ONE (05:06)
[2019-11-03] MEDS ORDERED: METHADONE HCL 10 MG TABLET ONE (05:06)
[2019-11-03] MEDS: METHADONE 80 MG, METHADONE 30 MG PO SCH (06:09)
[2019-11-03] MEDS: busPIRone HCL 10 MG TABLET (FP) PO SCH ×2 (10:47→21:15)
[2019-11-03] MEDS: PRENATAL VITAMINS W/ FOLIC ACID TABLET (FP) PO SCH (10:47)
[2019-11-03] MEDS: hydrOXYzine PAMOATE 50 MG CAPSULE (FP) PO PRN ×2 (10:48→21:16)
[2019-11-03] MEDS: BACITRACIN/POLYMYXIN B SULFATE 15 GM TUBE TP SCH ×2 (10:49→21:16)
[2019-11-03] MEDS: NICOTINE POLACRILEX 2 MG GUM BUC PRN (12:18)
[2019-11-03] MEDS: MELATONIN 5 MG TABLETS PO PRN (21:15)
[2019-11-03] MEDS: MIRTAZAPINE 15 MG TABLET (FP) PO SCH (21:15)
[2019-11-03] MEDS: THIAMINE HCL 100 MG TABLET (FP) PO SCH (21:15)
[2019-11-04] MEDS ORDERED: METHADONE HCL 10 MG TABLET ONE (04:31)
[2019-11-04] MEDS ORDERED: METHADONE HCL 40 MG DISPERSABLE TABLET ONE (04:31)
[2019-11-04] MEDS: METHADONE 80 MG, METHADONE 30 MG PO SCH (05:49)
[2019-11-04] MEDS: hydrOXYzine PAMOATE 50 MG CAPSULE (FP) PO PRN ×3 (05:59→21:36)
[2019-11-04] MEDS: BACITRACIN/POLYMYXIN B SULFATE 15 GM TUBE TP SCH ×2 (10:27→21:35)
[2019-11-04] MEDS: PRENATAL VITAMINS W/ FOLIC ACID TABLET (FP) PO SCH (10:27)
[2019-11-04] MEDS: busPIRone HCL 10 MG TABLET (FP) PO SCH ×2 (10:27→21:36)
[2019-11-04] MEDS: NICOTINE POLACRILEX 2 MG GUM BUC PRN (17:49)
[2019-11-04] MEDS: MELATONIN 5 MG TABLETS PO PRN (21:36)
[2019-11-04] MEDS: MIRTAZAPINE 15 MG TABLET (FP) PO SCH (21:36)
[2019-11-04] MEDS: THIAMINE HCL 100 MG TABLET (FP) PO SCH (21:36)
[2019-11-05] MEDS ORDERED: METHADONE HCL 10 MG TABLET ONE (04:29)
[2019-11-05] MEDS ORDERED: METHADONE HCL 40 MG DISPERSABLE TABLET ONE (04:29)
[2019-11-05] MEDS: METHADONE 80 MG, METHADONE 30 MG PO SCH (06:14)
[2019-11-05] MEDS: hydrOXYzine PAMOATE 50 MG CAPSULE (FP) PO PRN ×3 (06:17→21:30)
[2019-11-05] MEDS: BACITRACIN/POLYMYXIN B SULFATE 15 GM TUBE TP SCH ×2 (10:47→21:30)
[2019-11-05] MEDS: PRENATAL VITAMINS W/ FOLIC ACID TABLET (FP) PO SCH (10:47)
[2019-11-05] MEDS: busPIRone HCL 10 MG TABLET (FP) PO SCH ×2 (10:47→21:30)
[2019-11-05] MEDS: THIAMINE HCL 100 MG TABLET (FP) PO SCH (21:30)
[2019-11-05] MEDS: MIRTAZAPINE 15 MG TABLET (FP) PO SCH (21:30)
[2019-11-05] MEDS: NICOTINE POLACRILEX 2 MG GUM BUC PRN (22:42)
[2019-11-06] MEDS ORDERED: METHADONE HCL 40 MG DISPERSABLE TABLET ONE (05:58)
[2019-11-06] MEDS ORDERED: METHADONE HCL 10 MG TABLET ONE (05:58)
[2019-11-06] MEDS: METHADONE 80 MG, METHADONE 30 MG PO SCH (06:07)
[2019-11-06] MEDS: hydrOXYzine PAMOATE 50 MG CAPSULE (FP) PO PRN ×3 (06:09→21:37)
[2019-11-06] MEDS: busPIRone HCL 10 MG TABLET (FP) PO SCH ×2 (10:20→21:36)
[2019-11-06] MEDS: BACITRACIN/POLYMYXIN B SULFATE 15 GM TUBE TP SCH ×2 (10:20→21:45)
[2019-11-06] MEDS: PRENATAL VITAMINS W/ FOLIC ACID TABLET (FP) PO SCH (10:20)
[2019-11-06] MEDS: NICOTINE POLACRILEX 2 MG GUM BUC PRN (15:02)
[2019-11-06] MEDS: MIRTAZAPINE 15 MG TABLET (FP) PO SCH (21:36)
[2019-11-06] MEDS: THIAMINE HCL 100 MG TABLET (FP) PO SCH (21:37)
[2019-11-06] MEDS: MELATONIN 5 MG TABLETS PO PRN (21:37)
[2019-11-07] MEDS ORDERED: METHADONE HCL 40 MG DISPERSABLE TABLET ONE (04:39)
[2019-11-07] MEDS ORDERED: METHADONE HCL 10 MG TABLET ONE (04:39)
[2019-11-07] MEDS: hydrOXYzine PAMOATE 50 MG CAPSULE (FP) PO PRN ×3 (06:11→21:49)
[2019-11-07] MEDS: METHADONE 80 MG, METHADONE 30 MG PO SCH (06:12)
[2019-11-07] MEDS: busPIRone HCL 10 MG TABLET (FP) PO SCH ×2 (10:33→21:49)
[2019-11-07] MEDS: PRENATAL VITAMINS W/ FOLIC ACID TABLET (FP) PO SCH (10:33)
[2019-11-07] MEDS: BACITRACIN/POLYMYXIN B SULFATE 15 GM TUBE TP SCH ×2 (10:34→22:00)
[2019-11-07] MEDS: MELATONIN 5 MG TABLETS PO PRN (21:49)
[2019-11-07] MEDS: MIRTAZAPINE 15 MG TABLET (FP) PO SCH (21:49)
[2019-11-07] MEDS: THIAMINE HCL 100 MG TABLET (FP) PO SCH (21:49)
[2019-11-08] MEDS ORDERED: METHADONE HCL 40 MG DISPERSABLE TABLET ONE (05:46)
[2019-11-08] MEDS ORDERED: METHADONE HCL 10 MG TABLET ONE (05:46)
[2019-11-08] MEDS: METHADONE 80 MG, METHADONE 30 MG PO SCH (06:00)
[2019-11-08] MEDS: hydrOXYzine PAMOATE 50 MG CAPSULE (FP) PO PRN ×3 (06:04→21:47)
[2019-11-08] MEDS: PRENATAL VITAMINS W/ FOLIC ACID TABLET (FP) PO SCH (10:43)
[2019-11-08] MEDS: busPIRone HCL 10 MG TABLET (FP) PO SCH ×2 (10:43→21:47)
[2019-11-08] MEDS: BACITRACIN/POLYMYXIN B SULFATE 15 GM TUBE TP SCH ×2 (10:44→21:48)
[2019-11-08] MEDS: NICOTINE POLACRILEX 2 MG GUM BUC PRN (14:01)
[2019-11-08] MEDS: MIRTAZAPINE 15 MG TABLET (FP) PO SCH (21:47)
[2019-11-08] MEDS: MELATONIN 5 MG TABLETS PO PRN (21:47)
[2019-11-08] MEDS: THIAMINE HCL 100 MG TABLET (FP) PO SCH (21:47)
[2019-11-09] MEDS ORDERED: METHADONE HCL 10 MG TABLET ONE (05:03)
[2019-11-09] MEDS ORDERED: METHADONE HCL 40 MG DISPERSABLE TABLET ONE (05:03)
[2019-11-09] MEDS: METHADONE 80 MG, METHADONE 30 MG PO SCH (06:54)
[2019-11-09] MEDS: PRENATAL VITAMINS W/ FOLIC ACID TABLET (FP) PO SCH (10:13)
[2019-11-09] MEDS: busPIRone HCL 10 MG TABLET (FP) PO SCH ×2 (10:13→21:45)
[2019-11-09] MEDS: hydrOXYzine PAMOATE 50 MG CAPSULE (FP) PO PRN ×2 (10:14→21:46)
[2019-11-09] MEDS: BACITRACIN/POLYMYXIN B SULFATE 15 GM TUBE TP SCH ×2 (10:14→21:47)
[2019-11-09] MEDS: MIRTAZAPINE 15 MG TABLET (FP) PO SCH (21:45)
[2019-11-09] MEDS: MELATONIN 5 MG TABLETS PO PRN (21:46)
[2019-11-09] MEDS: THIAMINE HCL 100 MG TABLET (FP) PO SCH (21:46)
[2019-11-09] MEDS: NICOTINE POLACRILEX 2 MG GUM BUC PRN (22:43)
[2019-11-10] MEDS ORDERED: METHADONE HCL 10 MG TABLET ONE (04:28)
[2019-11-10] MEDS ORDERED: METHADONE HCL 40 MG DISPERSABLE TABLET ONE (04:28)
[2019-11-10] MEDS: hydrOXYzine PAMOATE 50 MG CAPSULE (FP) PO PRN ×2 (06:07→21:39)
[2019-11-10] MEDS: METHADONE 80 MG, METHADONE 30 MG PO SCH (06:07)
[2019-11-10] MEDS: BACITRACIN/POLYMYXIN B SULFATE 15 GM TUBE TP SCH ×2 (10:06→21:54)
[2019-11-10] MEDS: busPIRone HCL 10 MG TABLET (FP) PO SCH ×2 (10:06→21:39)
[2019-11-10] MEDS: PRENATAL VITAMINS W/ FOLIC ACID TABLET (FP) PO SCH (10:06)
[2019-11-10] MEDS: NICOTINE POLACRILEX 2 MG GUM BUC PRN ×2 (17:40→21:40)
[2019-11-10] MEDS: MIRTAZAPINE 15 MG TABLET (FP) PO SCH (21:39)
[2019-11-10] MEDS: THIAMINE HCL 100 MG TABLET (FP) PO SCH (21:39)
[2019-11-10] MEDS: MELATONIN 5 MG TABLETS PO PRN (21:39)
[2019-11-11] MEDS ORDERED: METHADONE HCL 40 MG DISPERSABLE TABLET ONE (04:28)
[2019-11-11] MEDS ORDERED: METHADONE HCL 10 MG TABLET ONE (04:28)
[2019-11-11] MEDS ORDERED: METHADONE 80 MG, METHADONE 30 MG PO SCH (06:00)
[2019-11-11] MEDS ORDERED: METHADONE HCL 10 MG TABLET PO SCH (06:00)
[2019-11-11] MEDS: hydrOXYzine PAMOATE 50 MG CAPSULE (FP) PO PRN ×2 (06:04→10:40)
[2019-11-11 07:01] VITALS: BP 123/68; PULSE 49; TEMP 97.3
[2019-11-11] MEDS: PRENATAL VITAMINS W/ FOLIC ACID TABLET (FP) PO SCH (10:40)
[2019-11-11] MEDS: BACITRACIN/POLYMYXIN B SULFATE 15 GM TUBE TP SCH (10:40)
[2019-11-11] MEDS: busPIRone HCL 10 MG TABLET (FP) PO SCH (10:40)
[2019-11-11] MEDS: NICOTINE POLACRILEX 2 MG GUM BUC PRN (12:57)
--- NOTE | 2019-11-11 13:45 | DS ---
[facility] Rehab Discharge Summary - [facility] Rehab Discharge Summary Admission Date: 10/28/19 Discharge Date: 11/11/19 - History Present History: Alcohol dependence, Cocaine dependence, Opioid dependence Additional Comments: Pt is a 34 y/o male with a hx of alcohol and opioid use disorder admitted to rehab and requesting discharge today. pt reports he has no primary care provider. Pt has been advised to seek primary care with [place], [place] close to his [facility] place of residence. [place] Pertinent Past History: Hx IVDU Sleep disorder - Discharge Physical Exam Vital Signs: Vital Signs Temperature 97.3 F L 11/11/19 07:01 Pulse Rate 49 L 11/11/19 07:01 Respiratory Rate 18 11/11/19 07:01 Blood Pressure 123/68 11/11/19 07:01 O2 Sat by Pulse Oximetry (%) Alert o x 3, denies s/h/i nad\oob ambulating with steady gait. cardiac:s1 s2, rrr lungs:cta,eliazar. abdomen:soft,+bs,nt,nd extremities/skin:no edema,full ROM/skin intact. Pertinent Admission Physical Exam Findings: Laboratory Tests 10/29/19 10/29/19 10/29/19 11:25 11:25 11:25 WBC 7.1 RBC 3.69 L Hgb 11.6 L Hct 34.6 L MCV 93.8 MCH 31.5 MCHC 33.6 RDW 14.3 Plt Count 164 MPV 10.7 Sodium 140 Potassium 4.1 Chloride 108 H Carbon Dioxide 30 Anion Gap 3 L BUN 11.7 Creatinine 1.0 Est GFR (CKD-EPI)AfAm 114.11 Est GFR (CKD-EPI)NonAf 98.45 Random Glucose 103 Calcium 8.8 Total Bilirubin 0.3 AST 44 H ALT 100 H Alkaline Phosphatase 58 Total Protein 6.7 Albumin 3.3 L RPR Titer Nonreactive - Treatment Discharge Condition: Discharge condition good Hospital Course: Rehabilitated safely Cd aftercare referral accepted - Medication Discharge Medications: Ambulatory Orders NK [No Known Home Medication] 12/03/18 - Medication-Assisted Treatment (MAT) Medication-Assisted Treatment (MAT): No - Discharge Instructions Diet, activity, other medical instructions: Diet:Regular Activity: oob ad bacilio Other medical instructions:follow up with primary care at [facility] within 1-2 weeks after discharge. follow up with aftercare at [facility] as scheduled. - Diagnosis (1) Opiate dependence Current Visit: Yes Status: Chronic Qualifiers: Substance use status: uncomplicated Qualified Code(s): F11.20 - Opioid dependence, uncomplicated (2) Alcohol dependence Current Visit: Yes Status: Chronic Qualifiers: Substance use status: in withdrawal Complication of substance-induced condition: uncomplicated Qualified Code(s): F10.230 - Alcohol dependence with withdrawal, uncomplicated (3) Cocaine dependence Current Visit: Yes Status: Chronic Qualifiers: Substance use status: uncomplicated Qualified Code(s): F14.20 - Cocaine dependence, uncomplicated (4) Nicotine dependence Current Visit: Yes Status: Chronic Qualifiers: Nicotine product type: cigarettes Substance use status: uncomplicated Qualified Code(s): F17.210 - Nicotine dependence, cigarettes, uncomplicated (5) IVDU (intravenous drug user) Current Visit: No Status: Acute - Follow-up Referral Minutes to complete discharge: 20 - AMA Did Patient Leave Against Medical Advice: No
== END 2019-11-11 14:10 | disposition home or self-care (01) | DRG 772 ==
LOC: YASAS 10:51 → Y5N 14:56 → Y6N 11-02 18:46 → Y5N 11-02 18:46
PROVIDERS: ADMIT Neuromusculoskeletal Medicine & OMM; ATTEND Neuromusculoskeletal Medicine & OMM
PROC: HZ42ZZZ Group Counseling for Substance Abuse Treatment, Cognitive-Behavioral (ICD-10-PCS; principal; 2019-10-28)
DX: F11.20 Opioid dependence, uncomplicated (principal); F10.20 Alcohol dependence, uncomplicated; F14.20 Cocaine dependence, uncomplicated; F17.210 Nicotine dependence, cigarettes, uncomplicated; F19.280 Other psychoactive substance dependence with psychoactive substance-induced anxiety disorder; F19.282 Other psychoactive substance dependence with psychoactive substance-induced sleep disorder; B18.2 Chronic viral hepatitis C; Z88.0 Allergy status to penicillin; Z86.69 Personal history of other diseases of the nervous system and sense organs
CPT/HCPCS: 36415; 80053; 85027; 86593

== ENCOUNTER 2021-05-09 18:55 | Inpatient (IN) | payer OTHER ==
[2021-05-09 19:34] VITALS: BMI 19.2
[2021-05-09] MEDS ORDERED: METHOCARBAMOL 500 MG TABLET PO PRN (20:55)
[2021-05-09] MEDS ORDERED: NICOTINE POLACRILEX 2 MG GUM BUC PRN (20:55)
[2021-05-09] MEDS ORDERED: MENTHOL/PHENOL 1 EACH UD MM PRN (20:55)
[2021-05-09] MEDS ORDERED: MAGNESIUM HYDROX 2400MG/30ML ORAL SUSPENSION 30 ML CUP PO PRN (20:55)
[2021-05-09] MEDS ORDERED: ACETAMINOPHEN 325 MG TABLET (FP) PO PRN ×2 (20:55)
[2021-05-09] MEDS ORDERED: MAG HYDROX/AL HYDROX/SIMETH 30 ML UNIT-DOSE CUP PO PRN (20:55)
[2021-05-09] MEDS ORDERED: IBUPROFEN 400 MG TABLET (FP) PO PRN (20:55)
[2021-05-09] MEDS ORDERED: hydrOXYzine PAMOATE 25 MG CAPSULE (FP) PO PRN (20:55)
[2021-05-09] MEDS ORDERED: BISMUTH SUBSALICYLATE 524 MG/30 ML PO PRN (20:55)
[2021-05-09] MEDS ORDERED: MAGNESIUM CITRATE 300 ML BOTTLE PO PRN (20:55)
[2021-05-09] MEDS: THIAMINE HCL 100 MG TABLET (FP) PO SCH (23:26)
[2021-05-09] MEDS: MELATONIN 5 MG TABLETS PO SCH (23:26)
[2021-05-10] MEDS: ONDANSETRON *ODT* 4 MG TABLET SL PRN (08:32)
[2021-05-10] MEDS: diazePAM 5 MG TABLET PO PRN ×3 (09:50→20:06)
[2021-05-10] MEDS: PRENATAL VITAMINS W/ FOLIC ACID TABLET (FP) PO SCH (09:53)
[2021-05-10] MEDS ORDERED: METHADONE HCL 10 MG TABLET (FOR DETOX USE ONLY) PO ONE (10:00)
[2021-05-10 13:30] LABS: HEMATOCRIT 41.2 % (35.4-49); HEMOGLOBIN 13.6 GM/dL (11.7-16.9); MCH 30.3 pg (25.7-33.7); MEAN PLT VOLUME 10.3 fl (7.5-11.1); PLATELET COUNT 173 10^3/uL (134-434); RBC 4.48 M/mm3 (4.00-5.60); RDW 15.1 % (11.9-15.9)
[2021-05-10 13:49] LABS: CALCIUM 9.2 mg/dL (8.5-10.1)
[2021-05-10 13:50] LABS: ALBUMIN 3.7 g/dl (3.4-5.0)
[2021-05-10 13:53] LABS: BILIRUBIN,TOTAL 0.5 mg/dL (0.2-1)
[2021-05-10 13:54] LABS: TOT PROT 7.3 g/dl (6.4-8.2)
[2021-05-10 13:56] LABS: CREATININE 0.9 mg/dL (0.55-1.3)
[2021-05-10 13:59] LABS: BLOOD UREA NITROGEN 15.6 mg/dL (7-18)
[2021-05-10] MEDS: MELATONIN 5 MG TABLETS PO SCH ×2 (23:11→23:48)
[2021-05-10] MEDS: THIAMINE HCL 100 MG TABLET (FP) PO SCH ×2 (23:11→23:49)
[2021-05-11] MEDS: diazePAM 5 MG TABLET PO PRN ×4 (06:58→23:02)
[2021-05-11] MEDS: ONDANSETRON *ODT* 4 MG TABLET SL PRN ×2 (06:59→22:57)
[2021-05-11] MEDS ORDERED: METHADONE HCL 5 MG TABLET (FOR DETOX USE ONLY) ONE (08:56)
[2021-05-11] MEDS ORDERED: METHADONE HCL 10 MG TABLET (FOR DETOX USE ONLY) ONE (08:57)
[2021-05-11] MEDS ORDERED: METHADONE HCL 5 MG TABLET (FOR DETOX USE ONLY) PO ONE (10:00)
[2021-05-11] MEDS ORDERED: METHADONE (DETOX) 10 MG, METHADONE (DETOX) 5 MG PO ONE (10:00)
[2021-05-11] MEDS ORDERED: METHADONE HCL 10 MG TABLET (FOR DETOX USE ONLY) PO ONE (10:00)
[2021-05-11] MEDS: PRENATAL VITAMINS W/ FOLIC ACID TABLET (FP) PO SCH (10:12)
[2021-05-11] MEDS: THIAMINE HCL 100 MG TABLET (FP) PO SCH ×2 (22:33→22:57)
[2021-05-11] MEDS: MELATONIN 5 MG TABLETS PO SCH ×2 (22:33→22:58)
[2021-05-12] MEDS ORDERED: diazePAM 5 MG TABLET PO PRN (00:01)
[2021-05-12 06:58] VITALS: BP 137/71; PULSE 67; TEMP 97.5
[2021-05-12] MEDS ORDERED: METHADONE HCL 10 MG TABLET (FOR DETOX USE ONLY) PO ONE (10:00)
[2021-05-13] MEDS ORDERED: METHADONE HCL 5 MG TABLET (FOR DETOX USE ONLY) PO ONE (05:00)
== END 2021-05-12 08:07 | disposition left against medical advice (07) | DRG 770 ==
LOC: YASAS 18:55 → UNDOADMIN 21:23 → Y6N 21:23
PROVIDERS: ADMIT Allergy & Immunology; ATTEND Allergy & Immunology
PROC: HZ2ZZZZ Detoxification Services for Substance Abuse Treatment (ICD-10-PCS; principal; 2021-05-09)
DX: F11.23 Opioid dependence with withdrawal (principal); F14.20 Cocaine dependence, uncomplicated; F17.210 Nicotine dependence, cigarettes, uncomplicated; M54.5 Low back pain; G89.29 Other chronic pain; R63.4 Abnormal weight loss; Z68.1 Body mass index [BMI] 19.9 or less, adult; Z88.0 Allergy status to penicillin; Z59.0 Homelessness
CPT/HCPCS: 36415; 80053; 85027; 86780; C9803; Q0162; U0003; U0005